=== PATIENT | male | born 2000 | race Caucasian/White ===

== ENCOUNTER 2022-10-06 05:25 | Emergency (ER) | payer SELFPAY ==
[~2022-10-06] VITALS: Ht 177.8 cm; Wt 68.0 kg
[2022-10-06 05:25] VITALS: BP 128/59
--- NOTE | 2022-10-06 05:25 | NUR ---
TO [facility], BIB [facility] FOR PREBOOK
[2022-10-06 05:40] VITALS: BP 128/59
--- NOTE | 2022-10-06 05:40 | NUR ---
PATIENT BIB [facility]ICE [facility]PT. PATIENT EXAMINED BY DR. PALOMO. PATIENT MEDICALLY CLEARED AND RELEASED IN CUSTODY IN STABLE CONDITION. ORIGINAL PRE-BOOK FORM GIVEN TO OFFICER BRYON.
== END 2022-10-06 05:40 ==
LOC: MED 05:25
DX: Z02.89 Encounter for other administrative examinations (principal)
CPT/HCPCS: 99283